=== PATIENT | female | born 1985 | race Caucasian/White ===

== ENCOUNTER 2017-09-16 04:27 | Emergency (ER) | payer OTHER ==
[~2017-09-16] VITALS: Ht 160 cm; Wt 117.9 kg
[~2017-09-16 04:27] MED LIST: BACTRIM DS TAB1 EACH PO; CIPRO500 MG PO; IBUPROFEN 600600 M1; NORCO 5-325 TA1 EAC1 PO; ULTRAM50 MG PO
[2017-09-16 04:47] LABS: URINE BILIRUBIN NEGATIVE (Negative); URINE BLOOD TRACE (Negative); URINE CLARITY CLEAR; URINE COLOR YELLOW; URINE GLUCOSE-RANDOM NEGATIVE (Negative); URINE KETONES NEGATIVE (Negative); URINE LEUKOCYTES-REFLEX NEGATIVE (Negative); URINE NITRITE-REFLEX NEGATIVE (Negative); URINE PROTEIN NEGATIVE (Negative); URINE UROBILINOGEN 0.2 E.U./dl (0.2-1.0)
[2017-09-16 05:00] LABS: ABSOLUTE BASOPHILS 0.1 thou/uL (0.0-0.2); ABSOLUTE EOSINOPHILS 0.1 thou/uL (0.0-0.7); ABSOLUTE LYMPHOCYTES 3.9 thou/uL (0.8-5.3); ABSOLUTE MONOCYTES 0.7 thou/uL (0.0-1.2); ABSOLUTE NEUTROPHILS 7.2 thou/uL (1.6-8.1); BASOPHILS 0.8 %; EOSINOPHILS 0.6 %; HEMATOCRIT 36.9 % (37.0-47.0); LYMPHOCYTES 32.5 %; MCH 25.4 pg (26.0-34.0); MCHC 32.6 g/dL (28.0-37.0); MONOCYTES 6.1 %; MPV 9.2 fl. (7.2-11.1); NUCLEATED RBCS 0 /100WBC; PLATELET COUNT* 269 thou/uL (150-400); RBC 4.73 mil/uL (4.20-5.00); RDW-CV 15.3 % (10.5-14.5)
[2017-09-16 05:09] LABS: CALCIUM 8.6 mg/dL (8.5-10.1); CREATININE 0.8 mg/dL (0.6-1.3); POTASSIUM 3.9 mmol/L (3.5-5.1)
[2017-09-16 05:19] LABS: ALBUMIN 3.3 g/dL (3.4-5.0); TOTAL BILIRUBIN 0.8 mg/dL (<0.1-1.0); TOTAL PROTEIN 7.5 g/dL (6.4-8.2)
[2017-09-16] MEDS ORDERED: PEPCID20 MG PO (05:35)
[2017-09-16] MEDS ORDERED: CARAFATE 1 GM TA1 GM PO (05:35)
[2017-09-16] MEDS ORDERED: HYDROCODON-ACE1 EAC8 PO (05:35)
[2017-09-16] MEDS ORDERED: ZOFRAN ODT4 MG PO (05:36)
[2017-09-16 05:55] VITALS: BP 140/80
[2017-09-17] MEDS ORDERED: LEVSIN0.125 MG PO (17:23)
== END 2017-09-16 05:55 | disposition home or self-care (01) ==
LOC: M.ERS 04:27
PROVIDERS: Emergency Medicine
DX: K29.70 Gastritis, unspecified, without bleeding (principal); Z88.5 Allergy status to narcotic agent; Z86.14 Personal history of Methicillin resistant Staphylococcus aureus infection

== ENCOUNTER 2017-09-17 14:42 | Emergency (ER) | payer OTHER ==
[~2017-09-17] VITALS: Ht 157.5 cm; Wt 117.9 kg
[~2017-09-17 14:42] MED LIST changes: +CARAFATE 1 GM TA1 GM PO; +HYDROCODON-ACE1 EAC8 PO; +PEPCID20 MG PO; +ZOFRAN ODT4 MG PO
[2017-09-17 14:59] LABS: URINE BILIRUBIN NEGATIVE (Negative); URINE BLOOD 2+ (Negative); URINE CLARITY SL CLOUDY; URINE COLOR YELLOW; URINE GLUCOSE-RANDOM NEGATIVE (Negative); URINE KETONES NEGATIVE (Negative); URINE LEUKOCYTES-REFLEX TRACE (Negative); URINE NITRITE-REFLEX NEGATIVE (Negative); URINE PROTEIN NEGATIVE (Negative); URINE UROBILINOGEN 0.2 E.U./dl (0.2-1.0)
[2017-09-17 15:10] LABS: BACTERIA-REFLEX >30 Many /HPF (None Seen); SQUAMOUS >10 Many /LPF (0-3)
[2017-09-17 15:11] LABS: CASTS None Seen /LPF (None Seen); CRYSTALS None Seen /LPF (None Seen); URINE RBC 3-10 Few /HPF (0-2); URINE WBC-REFLEX 0-5 Rare /HPF (0-5)
[2017-09-17 15:19] LABS: ABSOLUTE BASOPHILS 0.1 thou/uL (0.0-0.2); ABSOLUTE EOSINOPHILS 0.1 thou/uL (0.0-0.7); ABSOLUTE LYMPHOCYTES 3.3 thou/uL (0.8-5.3); ABSOLUTE MONOCYTES 0.7 thou/uL (0.0-1.2); ABSOLUTE NEUTROPHILS 6.7 thou/uL (1.6-8.1); BASOPHILS 1.3 %; EOSINOPHILS 0.5 %; HEMATOCRIT 36.7 % (37.0-47.0); HEMOGLOBIN 11.9 gm/dL (12.0-15.0); LYMPHOCYTES 30.3 %; MCH 25.6 pg (26.0-34.0); MCHC 32.3 g/dL (28.0-37.0); MCV 79.1 fL (80.0-100.0); MONOCYTES 6.2 %; MPV 9.3 fl. (7.2-11.1); NUCLEATED RBCS 0 /100WBC; PLATELET COUNT* 273 thou/uL (150-400); POLYS 61.7 %; RBC 4.64 mil/uL (4.20-5.00); RDW-CV 15.4 % (10.5-14.5); WBC 10.8 thou/uL (4.0-11.0)
[2017-09-17 15:29] LABS: CALCIUM 8.7 mg/dL (8.5-10.1); CREATININE 0.9 mg/dL (0.6-1.3); POTASSIUM 4.4 mmol/L (3.5-5.1)
[2017-09-17 15:33] LABS: ALBUMIN 3.2 g/dL (3.4-5.0); TOTAL BILIRUBIN 0.7 mg/dL (<0.1-1.0); TOTAL PROTEIN 7.3 g/dL (6.4-8.2)
[2017-09-17] MEDS ORDERED: LEVSIN0.125 MG PO (17:23)
[2017-09-17 17:27] VITALS: BP 142/78
== END 2017-09-17 17:28 | disposition home or self-care (01) ==
LOC: M.ERS 14:42
PROVIDERS: Nurse Practitioner Family
DX: R10.32 Left lower quadrant pain (principal); Z88.5 Allergy status to narcotic agent; Z86.14 Personal history of Methicillin resistant Staphylococcus aureus infection

== ENCOUNTER 2018-05-12 19:09 | Emergency (ER) | payer OTHER ==
[~2018-05-12] VITALS: Ht 160 cm; Wt 117.9 kg
[~2018-05-12 19:09] MED LIST changes: +LEVSIN0.125 MG PO
[2018-05-12] MEDS ORDERED: MEDROLDOSEPACK PO (19:39)
[2018-05-12 20:35] VITALS: BP 140/92
== END 2018-05-12 20:35 | disposition home or self-care (01) ==
LOC: M.ERS 19:09
DX: L20.9 Atopic dermatitis, unspecified (principal); L53.9 Erythematous condition, unspecified; Z86.14 Personal history of Methicillin resistant Staphylococcus aureus infection; Z98.890 Other specified postprocedural states; Z88.5 Allergy status to narcotic agent

== ENCOUNTER 2019-02-11 08:05 | Emergency (ER) | payer OTHER ==
[~2019-02-11] VITALS: Ht 157.5 cm; Wt 117.9 kg
[~2019-02-11 08:05] MED LIST changes: +MEDROLDOSEPACK PO
[2019-02-11] MEDS ORDERED: NOHOMEMEDICATIONS PO (08:48)
[2019-02-11] MEDS ORDERED: GENTAK5 ML TOP (10:36)
[2019-02-11 11:35] VITALS: BP 122/78
== END 2019-02-11 11:35 | disposition home or self-care (01) ==
LOC: M.ERS 08:05
DX: H18.821 Corneal disorder due to contact lens, right eye (principal); Z98.890 Other specified postprocedural states; Z86.14 Personal history of Methicillin resistant Staphylococcus aureus infection; Z88.6 Allergy status to analgesic agent

== ENCOUNTER 2019-08-08 19:41 | Emergency (ER) | payer OTHER ==
[~2019-08-08] VITALS: Ht 160 cm; Wt 120.2 kg
[~2019-08-08 19:41] MED LIST changes: +GENTAK5 ML TOP; +NOHOMEMEDICATIONS PO
[2019-08-08 20:42] LABS: ABSOLUTE BASOPHILS 0.2 thou/uL (0.0-0.2); ABSOLUTE EOSINOPHILS 0.1 thou/uL (0.0-0.7); ABSOLUTE LYMPHOCYTES 3.5 thou/uL (0.8-5.3); ABSOLUTE MONOCYTES 0.7 thou/uL (0.0-1.2); BASOPHILS 1.2 %; EOSINOPHILS 0.8 %; HEMATOCRIT 38.8 % (37.0-47.0); HEMOGLOBIN 12.9 gm/dL (12.0-15.0); LYMPHOCYTES 28.1 %; MCH 25.6 pg (26.0-34.0); MCHC 33.2 g/dL (28.0-37.0); MCV 77.2 fL (80.0-100.0); MONOCYTES 5.7 %; MPV 9.3 fl. (7.2-11.1); NUCLEATED RBCS 0 /100WBC; PLATELET COUNT* 323 thou/uL (150-400); POLYS 64.2 %; RBC 5.02 mil/uL (4.20-5.00); RDW-CV 14.7 % (10.5-14.5); WBC 12.6 thou/uL (4.0-11.0)
[2019-08-08 20:50] LABS: CALCIUM 8.6 mg/dL (8.5-10.1); CREATININE 0.8 mg/dL (0.6-1.3)
[2019-08-08 20:55] LABS: ALBUMIN 3.7 g/dL (3.4-5.0); TOTAL BILIRUBIN 0.7 mg/dL (<0.1-1.0); TOTAL PROTEIN 8.1 g/dL (6.4-8.2)
[2019-08-08] MEDS ORDERED: NORCO 5-325 TA1 EAC1 PO (21:14)
[2019-08-08 21:22] VITALS: BP 123/73
== END 2019-08-08 22:35 | disposition home or self-care (01) ==
LOC: M.ERS 19:41
PROVIDERS: Nurse Practitioner Family
DX: M79.662 Pain in left lower leg (principal); R79.82 Elevated C-reactive protein (CRP); E66.01 Morbid (severe) obesity due to excess calories; Z68.42 Body mass index [BMI] 45.0-49.9, adult; Z98.890 Other specified postprocedural states; Z88.6 Allergy status to analgesic agent

== ENCOUNTER 2021-02-07 07:16 | Emergency (ER) | payer BC ==
[~2021-02-07] VITALS: Ht 160 cm; Wt 127.0 kg
[2021-02-07 07:57] VITALS: BP 135/86
== END 2021-02-07 08:06 | disposition left against medical advice (07) ==
LOC: M.ERS 07:16
DX: R07.81 Pleurodynia (principal); Z53.21 Procedure and treatment not carried out due to patient leaving prior to being seen by health care provider